=== PATIENT | male | born 1980 | race Hispanic/Latino ===

== ENCOUNTER 2024-05-05 18:02 | Emergency (ER) | payer BC ==
[~2024-05-05] VITALS: Ht 170.2 cm; Wt 129.7 kg
--- NOTE | 2024-05-05 18:40 | ERN ---
ED Note History of Present Illness Stated Complaint: RIGHT WRIST LACERATION Chief Complaint: Laceration/Avulsion Time Seen by MD: 18:29 Time Seen by Midlevel: 18:30 Dictation: . Mr. James with history of obesity who presented to the emergency department this evening for evaluation of laceration. He states that approximately 90 minutes ago he was working on a spring-loaded garage door when it malfunctioned and a sharp metal edge struck his right forearm. He sustained a 4 cm laceration. His applied Steri-Strips, gauze dressing, and pressure with Coban. He denies additional injuries or concerns. He has good color, warmth, movement, and sensation of his right fingers. Capillary refill is less than 3 seconds. 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 EYES: Patient denies any visual symptoms. EARS, NOSE, AND THROAT: No difficulties with hearing. No symptoms of rhinitis or sore throat. CARDIOVASCULAR: Patient denies chest pains, palpitations, orthopnea and paroxysmal nocturnal dyspnea. RESPIRATORY: No dyspnea on exertion, no wheezing or cough. GI: No nausea, vomiting, diarrhea, constipation, abdominal pain, hematochezia or melena. : No urinary hesitancy or dribbling. No nocturia or urinary frequency. No abnormal urethral discharge. MUSCULOSKELETAL: Reports pain to right forearm NEUROLOGIC: No chronic headaches, no seizures. Patient denies numbness, tingling or weakness. PSYCHIATRIC: Patient denies problems with mood disturbance. No problems with anxiety. ENDOCRINE: No excessive urination or excessive thirst. DERMATOLOGIC: Reports laceration to right forearm Initial Vital Sign VS Vital Signs Date Time Temp Pulse Resp B/P (MAP) Pulse Ox O2 Delivery O2 Flow Rate FiO2 05/05/24 18:18 98.1 98 16 146/87 Room Air Physical Exam Dictation Vital signs: Reviewed. Constitutional: No acute distress. Non-toxic appearing. Head/Face: Normocephalic, atraumatic. Eyes: Periorbital areas with no swelling, redness, or edema. Lids and lashes are normal. Conjunctival injection is absent. Sclera anicteric. Pupils equal, round, reactive to light. ENT: Pinnas intact and no signs of trauma or erythema. Ear canals clear and no discharge. TMs no erythema. No nasal discharge or bleeding noted. Oropharynx with no exudate, redness, swelling, masses, exudates, or evidence of obs truction. Uvula midline. Mucous membranes moist. Neck: Trachea midline, no masses palpated, and no cervical lymphadenopathy. No swelling. Supple, full range of motion. Chest/Axilla: No tenderness, no crepitus, no paradoxical movement, no retractions. Cardiovascular: Regular rate, regular rhythm, no murmur, no gallops. Symmetric pulses. No peripheral edema. Respiratory: Respirations even and unlabored. Lung sounds clear; no wheezes, rales or rhonchi. Gastrointestinal: Inspection is normal. No distention is appreciated. Bowel sounds are normal. No mass or organomegaly . There is no tenderness. No rebound. No rigidity. No voluntary or involuntary guarding. No Arzate's sign. Neurological: Normal speech, gross motor function intact, gross sensory function intact. No focal weakness/Paresthesia. Musculoskeletal/Extremities: All extremities have full range of motion, no pain or tenderness on palpation. Symmetric pulses. He has good color, warmth, movement, and sensation to right fingers. Integumentary: 3.0 cm laceration to the right forearm. No bleeding. Skin is normal color, warm and dry. Cap refill less than 3 seconds. ED Course ED Course Orders Procedure Category Date Status Time Tetanus,Diphtheria PHA 05/05/24 Complete Tox [Adult] (Diphther 19:00 Laceration Tray Set CPOE 05/05/24 Transmitted Up (Er) 18:40 Wound Care (Er) CPOE 05/05/24 Transmitted 18:40 Hydrocodone/Apap PHA 05/05/24 Complete 5/325 ([place] 5/325mg) 19:00 Current Medications Medications (Trade) Dose Ordered Sig/Ben Route PRN Reason Start Time Stop Time Status Last Admin Dose Admin Acetaminophen/ Hydrocodone Bitart (NORco 5/325MG) 1 tab ONCE ONCE PO 05/05/24 19:00 05/05/24 19:01 DC Tetanus/ Diphtheria Toxoids Adsorbed (DiphthERIA-teTANUS TOXOID [ADULT]/ DECAVAC) 0.5 ml ONCE ONCE IM 05/05/24 19:00 05/05/24 19:01 DC Vital Signs Date Time Temp Pulse Resp B/P (MAP) Pulse Ox O2 Delivery O2 Flow Rate FiO2 05/05/24 18:18 98.1 98 16 146/87 Room Air Uneventful ED course. 3.0 cm laceration to the right forearm closed with interrupted sutures x4. Tolerated procedure well. Sterile dressing applied. He received doses [place] and tetanus update. Wound care and follow up instructions discussed with patient and significant other verbalized understanding. Medical Decision Making MDM MDM: Differential diagnosis: avulsion, laceration, fracture forearm Rationale: Tests considered and ordered secondary to shared decision making include: Previous outside records reviewed: Old ER visits. Risk of complication and/or morbidity or mortality of patient management: None Medications-Per medication reconciliation Need for hospitalization: Patient does not meet criteria for hospitalization. Need for emergency major/minor surgery: No There are no social concerns with this patient. Prescription drug management: Ibuprofen Prescriptions will include symptomatic care Patient's prior external medical records from other ER visits were reviewed by me as indicated. Prior testing and results from previous visits were reviewed. Prior tests were taken into account with medical decision making and resource utilization, independent historian/historians were used to obtain complete [facility] history. I independently interpreted the test that were performed, results were reviewed by me and considered findings on radiology if ordered. Medical management and examination interpretation discussions were had by me with other qualified healthcare professionals as indicated for the patient's care. Procedure Wound Location: upper extremity (right forearm) Wound's Depth, Shape: linear Wound Explored: clean Irrigated w/ Saline (ccs): 250 Betadine Prep?: Yes Anesthesia: 1% Lidocaine Volume Anesthetic (ccs): 5 Wound Repaired With: sutures Suture Size/Type: 4:0 Number of Sutures: 4 Sterile Dressing Applied?: Yes (sterile 4x4 dressing and abhilash applied) DX & DISP Disposition: Discharge Departure Impression: Primary Impression: Laceration of forearm Condition: Stable Scripts Ibuprofen (Ibuprofen) 600 Mg Tablet 600 MG PO Q6H PRN for PAIN, #15 TAB 0 Refills Prov: JUSTINE REINA TOOTH CUTTER CONTACT WHEEL 05/05/24 Additional Instructions: NO work x 24 hours. keep wound clean and dry x 24 hours. After the 24 hours you may shower; pat dry. . Monitor for signs of infection. Sutures should be removed in 7-10 days. May take Ibuprofen for discomfort. Return to the Emergency Department for worsening of symptoms or concerns Referrals: SELF,REFERRAL (PCP) Time of Disposition: 20:39 JUSTINE REINA NP May 05, 2024 18:40
--- NOTE | 2024-05-05 19:30 | NUR ---
Marlen durán in EDM - 05/05/24 at 2012 by TONI NO ANSWER IN LOBBY, PATIENT INFORMED REGISTRATION THEY WERE LEAVING DUE TO THE LONG WAIT
[2024-05-05] MEDS ORDERED: IBUP-2070 PO (20:40)
[2024-05-05] MEDS: teTANUS/diphthERIA TOXOID [ADULT] 0.5 ML VIAL IM ONE (21:33)
[2024-05-05] MEDS: HYDROcodone/APAP 5/325 1 TAB TABLET PO ONE (21:34)
[2024-05-05 21:40] VITALS: BP 138/85; PULSE 88; RESP 16; TEMP 98.2; O2SAT 98
== END 2024-05-05 21:45 | disposition home or self-care (01) ==
LOC: EDH 18:02
DX: S51.811A Laceration without foreign body of right forearm, initial encounter (principal); E66.9 Obesity, unspecified; W26.8XXA Contact with other sharp object(s), not elsewhere classified, initial encounter; Y93.89 Activity, other specified; Y92.89 Other specified places as the place of occurrence of the external cause; Y99.8 Other external cause status
CPT/HCPCS: 12002; 90471; 90714; 99284